=== PATIENT | female | born 1985 | race Caucasian/White ===

== ENCOUNTER → 2020-01-28 | Outpatient (CLI) | payer OTHER, SELFPAY ==
[2020-01-28 15:07] VITALS: BMI 23.1
[2020-01-28 17:16] LABS: Amphetamine Urine VISTA NEGATIVE (<1000 ng/mL); Barbiturate Urine VISTA NEGATIVE (< 200 ng/mL); Benzodiazepine Urine VISTA NEGATIVE (< 200 ng/mL); Cocaine Urine VISTA NEGATIVE (< 300 ng/mL); Ecstacy Urine VISTA NEGATIVE (< 500 ng/mL); Methadone Urine VISTA NEGATIVE (< 300 ng/mL); PCP Urine VISTA NEGATIVE (< 25 ng/mL); THC Urine VISTA NEGATIVE (< 50 ng/mL); Vista UDS pH Range 6
[2020-01-28 18:16] LABS: Chlamydia Trachomatis by PCR Negative (Negative); Neisserai gonorrhoeae by PCR Negative (Negative); Probe Check PASS; Sample Adequacy Control PASS; Specimen Processing Control PASS
== END | disposition home or self-care (01) ==
PROVIDERS: PCP Family Medicine; Visit Provider Obstetrics & Gynecology
DX: Z34.90 Encounter for supervision of normal pregnancy, unspecified, unspecified trimester (principal)
CPT/HCPCS: 80307; 87086; 87491; 87591

== ENCOUNTER → 2020-01-29 18:23 | Outpatient (CLI) | payer OTHER, SELFPAY ==
[2020-01-28 15:07] VITALS: BMI 23.1
--- NOTE | 2020-01-29 18:29 | US_ITS ---
STUDY: FIRST TRIMESTER OBSTETRICAL ULTRASOUND REASON FOR EXAM: Female, 34 years old VIABILITY HEAVY BLEEDING WITH CLOTS CRAMPS LMP: 11/29/2019 TECHNIQUE: Transvaginal TECHNICAL QUALITY: Adequate. PRIOR ULTRASOUND: None. FINDINGS: There is no demonstrated intrauterine gestational sac. There is no demonstrated embryo ( pole). The estimated gestation age (EGA) by LMP is 8 weeks, 6 days. The estimated date of delivery (SHRAVAN) by LMP is 09/04/2020. The uterus measures 7.7 x 5.3 x 3.9 cm. Heterogeneous, hyperechoic, thickened endometrial echoes measuring 14 mm across. No evidence for retained products of conception. No endometrial fluid. The right ovary measures 3.7 x 2.1 x 2.0 cm. There is a 2 cm right ovarian cyst. There is no visualized right adnexal mass or complex lesion. The left ovary measures 2.5 x 2.0 x 1.2 cm. There is no left ovarian cyst. There is no visualized left adnexal mass or complex lesion. There is no fluid in the cul de sac. US/Init OB < 14Wks US IMPRESSION: There is no evidence for . No evidence for retained products of conception. Findings could represent recent SAB. Electronically Signed: Jeramie Hawthorne MD at 19:21 EST , Service support ,
== END ==
PROVIDERS: PCP Family Medicine; Visit Provider Nurse Practitioner Women's Health
DX: Z34.90 Encounter for supervision of normal pregnancy, unspecified, unspecified trimester (principal)
CPT/HCPCS: 76801

== ENCOUNTER 2021-11-30 12:36 | Outpatient (CLI) | payer OTHER, SELFPAY ==
[2021-11-30 14:15] LABS: hCG Titer Quant., Serum 2480 mIU/mL (1-3)
== END 2021-11-30 23:59 | disposition short-term general hospital (02) ==
LOC: LAB 12:38
PROVIDERS: PCP Family Medicine; Visit Provider Obstetrics & Gynecology
DX: Z34.90 Encounter for supervision of normal pregnancy, unspecified, unspecified trimester (principal)
CPT/HCPCS: 36415; 84702; 86850; 86900; 86901

== ENCOUNTER 2021-12-02 11:10 | Outpatient (CLI) | payer OTHER, SELFPAY ==
[2021-12-02 13:34] LABS: hCG Titer Quant., Serum 1107 mIU/mL (1-3)
== END 2021-12-02 23:59 | disposition short-term general hospital (02) ==
LOC: LAB 11:11
PROVIDERS: PCP Family Medicine; Visit Provider Obstetrics & Gynecology
DX: Z34.90 Encounter for supervision of normal pregnancy, unspecified, unspecified trimester (principal)
CPT/HCPCS: 36415; 84702

== ENCOUNTER 2021-12-04 10:52 | Outpatient (CLI) | payer OTHER, SELFPAY ==
[2021-12-04 11:56] LABS: hCG Titer Quant., Serum 346 mIU/mL (1-3)
== END 2021-12-04 23:59 | disposition short-term general hospital (02) ==
LOC: LAB 10:54
PROVIDERS: PCP Family Medicine; Referring Provider Obstetrics & Gynecology; Visit Provider Obstetrics & Gynecology
DX: O02.1 Missed abortion (principal)
CPT/HCPCS: 36415; 84702

== ENCOUNTER → 2024-01-05 | Outpatient (CLI) | payer BC, SELFPAY ==
--- OUTSIDE RECORDS SUMMARY | 2024-01-05 12:18 | XMS RPT_ITS | CCD ---
Author Name Unknown Address [address] [place] [address] Organization [facility] Care Team Providers Care Rn Birthing Name Role Phone FAINA REYNOSO Unavailable Unavai lable Longdiane, Faina Elvia Unavailable Unavailab le Edgardo, Faina Elvia Unavailable Unavailab le Edgardo, Faina Elvia Unavailable Unavailab Brynn Burnett Unavailable Unavailable Brynn Alonzo Unavailable Unavailable Longsdorf, Faina Elvia Unavailable Unavailab le Bobbyorf, Faina Elvia Unavailable Faina Reynoso Referring Unavai lable Longjuanorf, Faina Ramos Attending Carmenza lable Faina Reynoso Primary Care Unavai lable Longdiane, Faina Ramos Primary Care Unavai lable Longdiane, Faina Ramos Referring Unavai lable Longsdailyn, Faina Ramos Attending Sylviavabong lable Harper Ruiz DO Unavailable [phone] COTTON CONVERTER, Kayela Unavailable Unavailable Unavailable Unavailable Harper Ruiz DO Attending Unavailable SaraHarper stout DO Referring Unavailable SaraHarper stout DO Consulting Unavailable FAINA REYNOSO Primary Care JAMILA Muñoz Attending Unavailab le Unavailable Unavailable Allergies Allergy Classification Reported Allergen(s) Allergy Type Date of Onset Reaction(s) Facility (1 source) No Known Medication Allergies; Translations: [No Known Medication Allergies] Propensity to adverse reactions to drug (disorder) [facility] Repository (2 sources) Azithromycin; Translations: [Zithromax] Drug Allergy [facility] ield [facility] [address] DO Work Phone: Medications Current Medications Medication Drug Class(es) Dates Sig (Normalized) Sig (Original) escitalopram 20 mg oral tablet (6 sources) Serotonin Reuptake Inhibitor Start: 07-06-2023 take 1 tablet by mouth at bedtime Lexapro 20 mg oral tablet 1 (one) tablet At bedtime for 0 days Quantity: 30 {Tablet} Refills: 3 Ordered: 06-Jul-2023 Harper Ruiz DO, DO, Kathleen Start : 06-Jul-2023 Active Completed/Discontinued Medications Medication Drug Class(es) Dates Sig (Normalized) Sig (Original) bifidobacterium animalis [id number] unt / lactobacillus acidophilus [id number] unt oral capsule (2 sources) Probiotic CAPS Quantity: 0 Refills: 0 Ordered: 04-Jun-2022 DO Active cholecalciferol 0.025 mg oral capsule (2 sources) Vitamin D Vitamin D (Cholecalciferol) 25 MCG (1000 UT) Oral Capsule Quantity: 0 Refills: 0 Ordered: 04-Jun-2022 DO Active 1 ml hydrOXYzine hydrochloride 25 mg/ml injection (6 sources) Antihistamine Start: 01-19-2023 hydrOXYzine HCL 25 mg/mL intramuscular solution 1 (one) mL As needed for 0 days Quantity: 30 {Milliliter} Refills: 3 Ordered: 19-Jan-2023 Harper Ruiz DO, DO, Kathleen Start : 19-Jan-2023 Active Comments: Medication taken as needed. Problems Active Problems Problem Classification Problem Date Documented Da te Episodic/Chronic Anxiety disorders (20 sources) Anxiety; Translations: [Anxiety] 01-19-2023 Chronic Fluid and electrolyte disorders (10 sources) Dehydration; Translations: [Dehydration] Onset: 02-15-2023 02-16-2023 Episodic Headache; including migraine (16 sources) Cough headache syndrome; Translations: [Cough headache] 02-15-2023 Episodic Past or Other Problems Problem Classification Problem Date Documented Da te Episodic/Chronic Unclassified (6 sources) Pregnancies (); Translations: [Pregnancies ()] 05-05-2016 Results Test Name Value Interpretation Reference Range Facil ity Vital Signs Date Time Vital Sign Value Performing Clinician Facility 02-17-2023 11:07-0400 Body height 170.18 cm Harper Sara DO [facility] Work Phone: 02-17-2023 11:07-0400 Body mass index (BMI) [Ratio] 22.01 kg/m2 Harper Sara DO Work Phone: [facility] Work Phone: 02-17-2023 11:07-0400 Body surface area Derived from formula 1.74 m2 Harper Sara DO Work Phone: [facility] Work Phone: 02-17-2023 11:07-0400 Body temperature 97.6 [degF] Harper Sara DO Work Phone: [facility] Work Phone: 02-17-2023 11:07-0400 Body weight 63.73 kg Harper Sara DO Work Phone: [facility] Work Phone: 02-17-2023 11:07-0400 Diastolic blood pressure 70 mm[Hg] Harper Sara DO Work Phone: [facility] Work Phone: Encounters Encounter Date Encounter Type Care Provider Facility Start: 02-17-2023 End: 02-17-2023 Office outpatient visit 10 minutes Harper Sara DO Work Phone: [facility] Start: 02-16-2023 End: 02-16-2023 Office outpatient visit 10 minutes Harper Sara DO Work Phone: [facility] Start: 02-15-2023 End: 02-16-2023 Emergency department patient visit FAINA RAMOS [facility] Start: 02-15-2023 End: 02-15-2023 Phone Encounter Harper Ferrellon DO Work Phone: [facility] Start: 01-22-2023 ambulatory Harper Ruiz DO [facility] Start: 01-19-2023 Review Harper Irwin n DO Work Phone: [facility] Start: 01-19-2023 End: 01-21-2023 Office outpatient new 30 minutes Harper Ruiz DO Work Phone: [facility] Start: 01-19-2023 End: 01-21-2023 Patient encounter status Harper Ruiz DO Work Phone: [facility] Work Phone: Start: 09-03-2022 Office outpatient visit 15 minutes Faina Elvia Edgardo Work Phone: [facility] 205 DO Work Phone: Start: 09-03-2022 ambulatory Faina Katt Reynoso Facility:[id number] Start: 06-04-2022 Office outpatient ne w 20 minutes Faina Reynoso Work Phone: [facility] 205 DO Work Phone: Start: 06-04-2022 ambulatory Faina Martinsjuanailyn Facility:[id number] Start: 11-27-2018 End: 11-28-2018 Patient encounter procedure Faina Reynoso Facility:[facility] Start: 08-23-2018 End: 08-27-2018 Patient encounter FAINA REYNOSO [facility] Start: 07-20-2018 End: 07-21-2018 Patient encounter procedure Brynn Alonzo Facility:[facility] Start: 05-05-2016 End: 05-05-2016 Patient encounter procedure Harper Ruiz DO Work Phone: [facility] Work Phone: Start: 05-05-2016 End: 05-05-2016 Periodic preventive med est patient 18-39 yrs Harper Ruiz DO Work Phone: [facility] Patient encounter procedure Gaby Chase [facility] Work Phone: Patient encounter status Gaby Chase [facility] Work Phone: Procedures Date Procedure Procedure Detail Performing Clinician Start: 05-05-2016 End: 05-05-2016 No Known Past Surgical History Gaby Chase CMA Extraction of wisdom tooth Ofelia Reynoso Work Phone: Microscopic examinat ion of cervical Papanicolaou smear Harper Ruiz DO Work Phone: Plan of Treatment Date Care Activity Detail Author Start: 02-16-2023 Procedure Education Eprescribed prescriptions (G8553) [facility] Work Phone: Start: 02-16-2023 Provider Instructions for Treatment Continue Current Prescription(s) [facility] Work Phone: Start: 01-19-2023 Procedure Education Eprescribed prescriptions (G8553) [facility] Work Phone: Start: 01-19-2023 Provider Instructions for Treatment Follow up in 3-4 weeks virtual [facility] Work Phone: Start: 09-07-2022 MODERNAC, Provider: LILY PATEL04 COVID,[id number], Status: Pen, Time: 9:00 AM MODERNAC, Provider: LILY PATEL04 COVID,[id number], Status: Pen, Time: 9:00 AM [facility] 205 DO Work Phone: Start: 05-05-2016 Lipid panel LIPID PANEL (04623) [facility] Work Phone: Start: 05-05-2016 Provider Instructions for Treatment Follow up in 1 year or as needed [facility] Work Phone: [facility] Work Phone: [facility] Work Phone: Immunizations Immunization Date Immunization Notes Care Provider Uriel mike 08-28-2022 influenza, seasonal, injectable Harper Ruiz DO Work Phone: [facility] Work Phone: 03-28-2022 COVID-Moderna (50 MCG/0.25 ML) Harper Ferrellon DO Work Phone: [facility] Work Phone: 10-23-2021 Moderna COVID-19 Vaccine 100 MCG/0.5ML Intramuscular Suspension Faina A Longsdorf Work Phone: [facility] 205 DO Work Phone: 09-28-2021 COVID-Moderna (50 MCG/0.25 ML) Harper Ferrellon DO Work Phone: [facility] Work Phone: 09-05-2021 Influenza, injectabl e, Madin Owenton Canine Kidney, preservative free, quadrivalent Faina A Longsdorf Work Phone: [facility] 205 DO Work Phone: 03-20-2021 Moderna COVID-19 Vaccine 100 MCG/0.5ML Intramuscular Suspension Faina A Longsdorf Work Phone: [facility] 205 DO Work Phone: 02-26-2021 COVID-Moderna (100 MCG/0.5 ML) Harper Ferrellon DO Work Phone: [facility] Work Phone: 02-20-2021 Moderna COVID-19 Vaccine 100 MCG/0.5ML Intramuscular Suspension Faina A Longsdorf Work Phone: [facility] 205 DO Work Phone: 09-19-2020 influenza, injectabl e, quadrivalent, preservative free Faina A Longsdorf Work Phone: [place] [address] DO Work Phone: 09-12-2019 Influenza, injectabl e, Madin Owenton Canine Kidney, preservative free, quadrivalent Faina Reynoso Work Phone: [facility] 205 DO Work Phone: 09-20-2018 influenza, injectabl e, quadrivalent, preservative free Faina Reynoso Work Phone: [place] [address] DO Work Phone: 12-20-2014 tetanus toxoid, reduced diphtheria toxoid, and acellular pertussis vaccine, adsorbed [facility] Work Phone: [place] [address] DO Work Phone: 09-28-2014 influenza virus vaccine, whole virus Faina Reynoso Work Phone: [place] [address] DO Work Phone: 11-11-2009 novel [id number], preservative-free, injectable Faina Reynoso Work Phone: [place] [address] DO Work Phone: 12-05-2002 hepatitis B vaccine, pediatric or pediatric/adolescent dosage Faina Reynoso Work Phone: [facility] 205 DO Work Phone: 12-05-2002 TD(adult) unspecifie d formulation Faina Reynoso Work Phone: [facility] 205 DO Work Phone: 06-07-2002 hepatitis B vaccine, pediatric or pediatric/adolescent dosage Faina Reynoso Work Phone: [place] [address] DO Work Phone: 05-10-2002 hepatitis B vaccine, pediatric or pediatric/adolescent dosage Faina Reynoso Work Phone: [facility] 205 DO Work Phone: 07-10-1996 measles, mumps and rubella virus vaccine Faina Reynoso Work Phone: [place] [address] DO Work Phone: 12-07-1984 diphtheria, tetanus toxoids and acellular pertussis vaccine, unspecified formulation Faina Reynoso Work Phone: [facility] 205 DO Work Phone: 08-17-1984 measles, mumps and rubella virus vaccine Faina Reynoso Work Phone: [place] [address] DO Work Phone: 1985 diphtheria, tetanus toxoids and pertussis vaccine Faina Reynoso Work Phone: [place] [address] DO Work Phone: 1985 poliovirus vaccine, inactivated Faina Reynoso Work Phone: [place] [address] DO Work Phone: 1985 diphtheria, tetanus toxoids and pertussis vaccine Faina Reynoso Work Phone: [place] [address] DO Work Phone: 1985 poliovirus vaccine, inactivated Faina Martinssdorf Work Phone: [place] [address] DO Work Phone: 1985 diphtheria, tetanus toxoids and pertussis vaccine Faina Reynoso Work Phone: [facility] 205 DO Work Phone: 1985 poliovirus vaccine, inactivated Faina Martinsmtailyn Work Phone: [facility] DO Work Phone: Payers Date Payer Category Payer Unknown [id number] 2018 Private Health Insurance 2018 Unknown 2016 Medicaid [id number] 1985 Unknown [id number] 1983 Unknown [id number] [id number] 1983 Unknown [id number] [id number] 1983 Unknown [id number] [id number]. [id number] 1983 Unknown [id number] [id number] [id number] 1983 Unknown [id number] [id number]. [id number] Unknown [id number] Social History Date Type Detail Facility Never smoker Never smoker [facility] DO Work Phone: Chief complaint Narrative - Reported 09-03-2022 Note Date & Type Note Facility 09-03-2022 Chief complaint Narrative - Reported An interactive audio and video telecommunication system which permits real time communications between the patient (at the originating site) and provider (at the distant site) was utilized to provide this telehealth service.Verbal consent was requested and obtained from CLARITZA AVILES on this date, 09/03/2022 11:20 AM , for a telehealth visit.ringworm to rt cheek, rt wrist, rt arm, x3 days [facility] 205 DO Work Phone: History of Present illness Narrative 05-28-2022 Note Date & Type Note Facility 05-28-2022 History of Presen t illness Narrative Here c/o some left ear discomfort - she is having some drainage as well off and on. Started about a week ago. Otherwise she is doing well. [facility] 205 DO Work Phone: History of Present illness Narrative Note Date & Type Note Facility History of Present illness Narrative Virtual visit for c/o ringworm - her son has been dealing with ringworm for over a month. He was recently started on Griseofulvin. She has a couple of spots herself - they do seem to be getting a little better using terbinafine cream on them. We discussed treatment, keeping the lesions covered. She will continue the antifungal cream and may add some cortisone cream prn. She will f/u if it gets worse or does not improve. [facility] 205 DO Work Phone: Instructions Note Date & Type Note Facility [facility] Work Phone: Instructions Note Date & Type Note Facility [facility] Work Phone: Instructions Note Date & Type Note Facility [facility] Work Phone: Instructions Note Date & Type Note Facility [facility] Work Phone: Instructions Note Date & Type Note Facility [facility] Work Phone: Instructions Note Date & Type Note Facility [facility] Work Phone: Summary Purpose Family History Unknown Family Member Name Dates Details ALS Comments:Paternal Grandfathe r. Status:Active Breast Cancer Comments:Maternal Grandmothe r. Paternal Aunt. Status:Active Heart Disease Status:Active Hypercholesterolemia Comments:Maternal Grandmothe r. Status:Active Hypertension Comments:Father. Maternal Gr andmother. Status:Active Unknown Family Member Name Dates Details ALS Comments:Paternal Grandfathe r. Status:Active Breast Cancer Comments:Maternal Grandmothe r. Paternal Aunt. Status:Active Heart Disease Status:Active Hypercholesterolemia Comments:Maternal Grandmothe r. Status:Active Hypertension Comments:Father. Maternal Gr andmother. Status:Active Unknown Family Member Name Dates Details ALS Comments:Paternal Grandfathe r. Status:Active Breast Cancer Comments:Maternal Grandmothe r. Paternal Aunt. Status:Active Heart Disease Status:Active Hypercholesterolemia Comments:Maternal Grandmothe r. Status:Active Hypertension Comments:Father. Maternal Gr andmother. Status:Active Unknown Family Member Name Dates Details ALS Comments:Paternal Grandfathe r. Status:Active Breast Cancer Comments:Maternal Grandmothe r. Paternal Aunt. Status:Active Heart Disease Status:Active Hypercholesterolemia Comments:Maternal Grandmothe r. Status:Active Hypertension Comments:Father. Maternal Gr andmother. Status:Active Unknown Family Member Name Dates Details ALS Comments:Paternal Grandfathe r. Status:Active Breast Cancer Comments:Maternal Grandmothe r. Paternal Aunt. Status:Active Heart Disease Status:Active Hypercholesterolemia Comments:Maternal Grandmothe r. Status:Active Hypertension Comments:Father. Maternal Gr andmother. Status:Active Unknown Family Member Name Dates Details ALS Comments:Paternal Grandfathe r. Status:Active Breast Cancer Comments:Maternal Grandmothe r. Paternal Aunt. Status:Active Heart Disease Status:Active Hypercholesterolemia Comments:Maternal Grandmothe r. Status:Active Hypertension Comments:Father. Maternal Gr andmother. Status:Active Advance Directives Name Dates Details Immunization Registry [place] - Effective on 01/19/2023. Expiration date unspecified Effective:19-Jan-2023 Name Dates Details Immunization Registry [place] - Effective on 01/19/2023. Expiration date unspecified Effective:19-Jan-2023 Name Dates Details Immunization Registry [place] - Effective on 01/19/2023. Expiration date unspecified Effective:19-Jan-2023 Name Dates Details Immunization Registry [place] - Effective on 01/19/2023. Expiration date unspecified Effective:19-Jan-2023 Name Dates Details Immunization Registry [place] - Effective on 01/19/2023. Expiration date unspecified Effective:19-Jan-2023 Name Dates Details Immunization Registry [place] - Effective on 01/19/2023. Expiration date unspecified Effective:19-Jan-2023 Chief Complaint Here to day due to her Left ear bothering her. Started with itching and feeling like something in it. Yesterday she had a throbbing pain in her left ear. Better today Going to be flying on Tuesday of next week wants to make sure her ear is better Additional Source Comments INFORMATION SOURCE (unrecogn ized section and content) DATE CREATED AUTHOR AUTHOR'S ORGANIZ ATION 11/28/2018 [facility] DATE CREATED AUTHOR AUTHOR'S ORGANIZ ATION 09/04/2022 [facility] DATE CREATED AUTHOR AUTHOR'S ORGANIZ ATION 09/04/2022 [employer] DATE CREATED AUTHOR AUTHOR'S ORGANIZ ATION [facility] DATE CREATED AUTHOR AUTHOR'S ORGANIZ ATION 02/21/2023 [facility] FOR RECORDS PERTAINING TO PATIENTS WHO ARE OR HAVE BEEN ENROLLED IN A CHEMICAL DEPENDENCY/SUBSTANCEABUSE PROGRAM, SOME INFORMATION MAY BE OMITTED. This clinical summary was aggregated from multiple sources. Caution should be exercised in using it in the provision of clinical care. This summary normalizes information from multiple sources, and as a consequence, information in this document may materially change the coding, format and clinical context of patient data. In addition, data may be omitted in some cases. CLINICAL DECISIONS SHOULD BE BASED ON THE PRIMARY CLINICAL RECORDS. [employer] provides no warranty or guarantee of the accuracy or completeness of information in this document.
[2024-01-11 21:07] LABS: HPV APTIMA, High Risk Positive (Negative); HPV Genotype 16, Aptima Negative (Negative); HPV Genotype 18,45 Aptima Negative (Negative)
== END | disposition home or self-care (01) ==
LOC: LABSPEC 10:49
PROVIDERS: PCP Family Medicine; Referring Provider Nurse Practitioner Women's Health; Visit Provider Nurse Practitioner Women's Health
DX: Z12.4 Encounter for screening for malignant neoplasm of cervix (principal)
CPT/HCPCS: 87624; 88175; G0145

== ENCOUNTER → 2024-02-01 | Outpatient (CLI) | payer BC, SELFPAY ==
--- NOTE | 2024-02-01 13:41 | BI_ITS ---
MAMMOGRAPHY - BILATERAL SCREENING 3-D TOMOSYNTHESIS REASON FOR EXAM: Female, 38 years old. SCREENING PERTINENT HISTORY: No significant family history. TECHNIQUE: 2-D mammograms and 3-D Tomosynthesis of the breast (s) were performed. CAD was performed. COMPARISON: None. FINDINGS: The breast composition is Extermely dense tissue. Scattered benign calcifications are seen. No dense spiculated masses or suspicious microcalcifications are identified. No architectural distortion is identified. There is no skin thickening or retraction. There has been no significant change since the prior study. BI/SCRN MAMM (CAD)W/JUAN A BILAT IMPRESSION: No mammographic signs of malignancy. Routine yearly mammograms recommended. ASSESSMENT CATEGORY: BIRADS Category 1: Negative. A letter regarding these results will be sent to the patient by the facility within 30 days. FOLLOW UP RECOMMENDATION: Yearly follow up mammogram recommended. (A) Approximately 10% of breast cancers are not detected by mammography. A normal mammogram should not delay biopsy of a clinically suspicious abnormality. Electronically Signed: Eriberto Fairchild MD at 19:25 EST ,
--- OUTSIDE RECORDS SUMMARY | 2024-02-01 18:29 | XMS RPT_ITS | CCD ---
Author Name Unknown Address [address] [place] [address] Organization [facility] Care Team Providers Care Software Quality Manager Name Role Phone FAINA REYNOSO Unavailable Unavai [...] Attending Sylviavabong lable Harper Ruiz DO Unavailable [phone] Rena DIAL SCREW ASSEMBLER, Kayela Unavailable Unavailable Unavailable Unavailable Harper Ruiz DO Attending Unavailable SaraHarper stout DO Referring Unavailable SaraHarper stout DO Consulting Unavailable FAINA REYNOSO [facility] JAMILA Muñoz Attending Unavailab le Unavailable Unavailable Allergies Allergy Classification Reported Allergen(s) Allergy Type Date of Onset Reaction(s) Facility (1 source) No Known Medication Allergies; Translations: [No Known Medication Allergies] Propensity to adverse reactions to drug (disorder) [facility] Repository (2 sources) Azithromycin; Translations: [Zithromax] Drug Allergy [facility] ield [facility] 205 DO Work Phone: Medications Current Medications [...] Dates Sig (Normalized) Sig (Original) bifidobacterium animalis [id number] unt / lactobacillus acidophilus [id number] unt oral capsule (2 sources) Probiotic CAPS [...] 02-16-2023 Emergency department patient visit FAINA RAMOS [facility] [place] Start: 02-15-2023 End: 02-15-2023 Phone Encounter Harper [...] 15 minutes Faina Elvia Edgardo Work Phone: [facility] 205 DO Work Phone: Start: 09-03-2022 ambulatory Faina Katt Reynoso Facility:[id number] Start: 06-04-2022 Office outpatient ne w 20 minutes Faina Reynoso Work Phone: [facility] 205 DO Work Phone: Start: 06-04-2022 ambulatory Faina Martinsjuanailyn Facility:[id number] Start: 11-27-2018 End: 11-28-2018 Patient encounter procedure Faina Reynoso Facility:[facility] Start: 08-23-2018 End: 08-27-2018 Patient encounter FAINA REYNOSO [facility] Start: 07-20-2018 End: 07-21-2018 Patient encounter procedure Brynn Alonzo Facility:[facility] Start: 05-05-2016 End: 05-05-2016 Patient encounter procedure Harper Ruiz DO Work Phone: [facility] Work Phone: Start: 05-05-2016 End: 05-05-2016 Periodic preventive med est patient 18-39 yrs Harper Ruiz DO Work Phone: [facility] Patient encounter procedure Gaby Chase [facility] Work Phone: Patient encounter status Gaby Chase [facility]; [facility] Work [...] Phone: Start: 09-07-2022 MODERNAC, Provider: LILY PATEL04 COVID,[id number], Status: Pen, Time: 9:00 AM MODERNAC, Provider: LILY PATEL04 COVID,[id number], Status: Pen, Time: 9:00 AM [facility] 205 DO Work Phone: Start: 05-05-2016 Lipid panel LIPID PANEL (24599) [facility]; [facility] Work Phone: [...] Intramuscular Suspension Faina A Longsdorf Work Phone: [facility] 205 DO Work Phone: 09-28-2021 COVID-Moderna (50 MCG/0.25 ML) Harper Ferrellon DO Work Phone: [facility]; [facility] Work Phone: 09-05-2021 Influenza, injectabl e, Madin Eagan Canine Kidney, preservative free, quadrivalent Faina A Longsdorf Work Phone: [facility] 205 DO Work Phone: 03-20-2021 Moderna COVID-19 Vaccine 100 MCG/0.5ML Intramuscular Suspension Faina A Longsdorf Work Phone: [facility] 205 DO Work Phone: 02-26-2021 COVID-Moderna (100 MCG/0.5 ML) Harper Ferrellon DO Work Phone: [facility]; [facility] Work Phone: 02-20-2021 Moderna COVID-19 Vaccine 100 MCG/0.5ML Intramuscular Suspension Faina A Longsdorf Work Phone: [facility] 205 DO Work Phone: 09-19-2020 influenza, injectabl e, quadrivalent, preservative free Faina A Longsdorf Work Phone: [place] [address] DO Work Phone: 09-12-2019 Influenza, injectabl e, Madin Eagan Canine Kidney, preservative free, quadrivalent Faina Reynoso Work Phone: [facility] 205 DO Work Phone: 09-20-2018 influenza, injectabl e, quadrivalent, preservative free Faina Reynoso Work Phone: [place] [address] DO Work Phone: 12-20-2014 tetanus toxoid, reduced diphtheria toxoid, and acellular pertussis vaccine, adsorbed [facility] Work Phone: [place] [address] DO Work Phone: 09-28-2014 influenza virus vaccine, whole virus Faina Reynoso Work Phone: [place] [address] DO Work Phone: 11-11-2009 novel [id number], preservative-free, injectable Faina Reynoso Work Phone: [place] [address] DO Work Phone: 12-05-2002 hepatitis B vaccine, pediatric or pediatric/adolescent dosage Faina Reynoso Work Phone: [facility] 205 DO Work Phone: 12-05-2002 TD(adult) unspecifie d formulation Faina Reynoso Work Phone: [facility] 205 DO Work Phone: 06-07-2002 hepatitis B vaccine, pediatric or pediatric/adolescent dosage Faina Reynoso Work Phone: [place] [address] DO Work Phone: 05-10-2002 hepatitis B vaccine, pediatric or pediatric/adolescent dosage Faina Reynoso Work Phone: [facility] 205 DO Work Phone: 07-10-1996 measles, mumps and rubella virus vaccine Faina Reynoso Work Phone: [place] [address] DO Work Phone: 12-07-1984 diphtheria, tetanus toxoids and acellular pertussis vaccine, unspecified formulation Faina Reynoso Work Phone: [facility] 205 DO Work Phone: 08-17-1984 measles, mumps and rubella virus vaccine Faina Reynoso Work Phone: [place] [address] DO Work Phone: 1985 diphtheria, tetanus toxoids and pertussis vaccine Faina Reynoso Work Phone: [place] [address] DO Work Phone: 1985 poliovirus vaccine, inactivated Faina Reynoso Work Phone: [place] [address] DO Work Phone: 1985 diphtheria, tetanus toxoids and pertussis vaccine Faina Reynoso Work Phone: [place] [address] DO Work Phone: 1985 poliovirus vaccine, inactivated Faina Martinssdorf Work Phone: [place] [address] DO Work Phone: 1985 diphtheria, tetanus toxoids and pertussis vaccine Faina Reynoso Work Phone: [facility] 205 DO Work Phone: 1985 poliovirus vaccine, inactivated Faina Martinsmnailyn Work Phone: [facility] DO Work Phone: Payers Date Payer Category Payer Unknown [id number] 2018 Private Health Insurance 2018 Unknown 2016 Medicaid [id number] 1985 Unknown [id number] 1985 Unknown [id number] [id number] [id number] 1985 Unknown [id number] 2.16. [id number] 1985 Unknown [id number] 2.16. [id number] 1985 Unknown [id number] 2.16.84 [id number] 1985 Unknown [id number] 2.16. [id number] Unknown [id number] Social History Date Type Detail Facility Never smoker Never smoker [facility] DO Work Phone: Chief complaint Narrative - [...] cheek, rt wrist, rt arm, x3 days [facility] 205 DO Work Phone: History of Present illness Narrative 05-28-2022 Note Date & Type Note Facility 05-28-2022 History of Presen t illness Narrative Here c/o some left ear discomfort - she is having some drainage as well off and on. Started about a week ago. Otherwise she is doing well. [facility] 205 DO Work Phone: History of Present [...] it gets worse or does not improve. [facility] 205 DO Work Phone: Instructions Note Date [...] Advance Directives Name Dates Details Immunization Registry [place] - Effective on 01/19/2023. Expiration date unspecified Effective:19-Jan-2023 Name Dates Details Immunization Registry [place] - Effective on 01/19/2023. Expiration date unspecified Effective:19-Jan-2023 Name Dates Details Immunization Registry [place] - Effective on 01/19/2023. Expiration date unspecified Effective:19-Jan-2023 Name Dates Details Immunization Registry [place] - Effective on 01/19/2023. Expiration date unspecified Effective:19-Jan-2023 Name Dates Details Immunization Registry [place] - Effective on 01/19/2023. Expiration date unspecified Effective:19-Jan-2023 Name Dates Details Immunization Registry [place] - Effective on 01/19/2023. Expiration date unspecified [...] DATE CREATED AUTHOR AUTHOR'S ORGANIZ ATION 11/28/2018 [facility] DATE CREATED AUTHOR AUTHOR'S ORGANIZ ATION 09/04/2022 [facility] DATE CREATED AUTHOR AUTHOR'S ORGANIZ ATION 09/04/2022 [employer] DATE CREATED AUTHOR AUTHOR'S ORGANIZ ATION [facility]/2023 [facility] DATE CREATED AUTHOR AUTHOR'S ORGANIZ ATION 02/21/2023 [...] BE BASED ON THE PRIMARY CLINICAL RECORDS. [employer] provides no warranty or guarantee of the accuracy or completeness of information in this document.
== END | disposition home or self-care (01) ==
LOC: OPBI 13:40
PROVIDERS: PCP Family Medicine; Referring Provider Nurse Practitioner Women's Health; Visit Provider Nurse Practitioner Women's Health
DX: Z12.31 Encounter for screening mammogram for malignant neoplasm of breast (principal)
CPT/HCPCS: 77063; 77067

== ENCOUNTER → 2025-01-09 | Outpatient (CLI) | payer OTHER, SELFPAY ==
[2025-01-15 20:08] LABS: HPV APTIMA, High Risk Positive (Negative); HPV Genotype 16, Aptima Negative (Negative); HPV Genotype 18,45 Aptima Negative (Negative)
== END | disposition home or self-care (01) ==
LOC: LABSPEC 16:28
PROVIDERS: PCP Family Medicine; Referring Provider Nurse Practitioner Women's Health; Visit Provider Nurse Practitioner Women's Health
DX: Z12.4 Encounter for screening for malignant neoplasm of cervix (principal)
CPT/HCPCS: 87624; 88175; G0145

== ENCOUNTER → 2025-02-06 | Outpatient (CLI) | payer OTHER, SELFPAY ==
--- NOTE | 2025-02-06 12:45 | BI_ITS ---
PROCEDURE: SCRN MAMM (CAD)W/JUAN A BILAT REASON FOR EXAM: F, Age 39 y/o , SCREENING FOR BREAST CANCER. Grandmother with breast cancer. Aunt with breast cancer. TECHNIQUE: Bilateral screening digital breast tomosynthesis with 2D and 3D images. Computer aided detection. COMPARISON: Prior exam(s) dating back to February 01, 2024.. FINDINGS: The breasts are extremely dense which lowers the sensitivity of mammography. Stable small bilateral axillary lymph nodes. Stable examination. No suspicious masses, areas of developing architectural distortion, or suspicious calcifications. BI/SCRN MAMM (CAD)W/JUAN A BILAT IMPRESSION: BI-RADS 2: BENIGN. RECOMMEND ANNUAL MAMMOGRAPHIC SCREENING. Follow-up code: Routine Follow-up The patient will be notified of the results by letter. Reading Location: [place] [address]
--- NOTE | 2025-02-06 13:50 | EMB_PTH ---
PATIENT: STEPHANIE AVILES LOC: [facility] U#:[id number] AGE/SX: 39/F ROOM: RE02/06/[address]: PEDRO Oscar : 1985 BED: DIS: 02/06/2025 SPEC #: [id number] RECD: 02/07/25 11:26 STATUS: TIGRE JEREMY #: [id number] MARYAM: 02/06/25 13:[address]: Martita Tipton NP DEPT: SURGICAL PATHOLOGY RECD BY: Ge Vincent ENTERED: 02/07/25 11:26 SP TYPE: ENDOM BX/C TOÑA DR: Dr. Harper Ruiz DO Tissues: A - Endometrium, NOS B - Uterine cervix, NOS Procedures: Surgery Specimen Level IV HEADER OPERATION: Colposcopy PRE-OP DIAGNOSIS: HPV+ TISSUE SUBMITTED: A- ECC, B- 1o'clock MICROSCOPIC DIAGNOSIS A: ENDOCERVIX, CURETTAGE: * Low grade LIZZ (mild dysplasia/HPV, WESLEY 1). * Benign endocervical cells. B: CERVIX, 1:00, BIOPSY: * Low grade LIZZ (mild dysplasia/HPV, WESLEY 1). MICROSCOPIC DESCRIPTION Slides are reviewed. GROSS DESCRIPTION A: The specimen is received in one container labeled with the patient's name and designated ECC. The specimen consists of only tiny specks of possible tissue. Submitted for cell block preparation. TE1 B: The specimen is received in a container labeled with the patient's name and 1 o'clock. It consists of 1 small fragment of white soft tissue measuring 3 x 3 x 1 mm. TE1 02/08/25 CPT: 21069,83796
== END | disposition home or self-care (01) ==
PROVIDERS: PCP Internal Medicine; Referring Provider Nurse Practitioner Women's Health; Visit Provider Nurse Practitioner Women's Health
DX: Z12.31 Encounter for screening mammogram for malignant neoplasm of breast (principal); R87.810 Cervical high risk human papillomavirus (HPV) DNA test positive
CPT/HCPCS: 77063; 77067; 88305